=== PATIENT | female | born 1970 | race Caucasian/White ===

== ENCOUNTER → 2017-01-21 | Outpatient (CLI) | payer BC | LOC: COL.RAD 01-16 08:15 | DX: G35 Multiple sclerosis (principal) | CPT/HCPCS: A9585 ==

== ENCOUNTER → 2020-04-06 | Outpatient (CLI) | payer BC | LOC: COL.RAD 07:15 | DX: E53.8 Deficiency of other specified B group vitamins (principal); E55.9 Vitamin D deficiency, unspecified; E61.1 Iron deficiency | CPT/HCPCS: A9585 ==

== ENCOUNTER 2021-05-03 08:05 | Outpatient (RCR) | payer OTHER | END 2021-08-01 | disposition home or self-care (01) | LOC: WSOH | DX: T44.5X1A Poisoning by predominantly beta-adrenoreceptor agonists, accidental (unintentional), initial encounter (principal); F17.210 Nicotine dependence, cigarettes, uncomplicated; Z90.49 Acquired absence of other specified parts of digestive tract; Z98.51 Tubal ligation status; Z90.89 Acquired absence of other organs; Z98.890 Other specified postprocedural states; Y99.0 Civilian activity done for income or pay ==

== ENCOUNTER 2021-05-03 09:51 | Emergency (ER) | payer OTHER ==
[~2021-05-03] VITALS: Ht 167.6 cm; Wt 111.4 kg
[2021-05-03 10:00] VITALS: TEMP 98.5
[2021-05-03 10:50] VITALS: BP 126/82; PULSE 85
== END 2021-05-03 10:51 | disposition home or self-care (01) ==
LOC: COL.ER 09:51
DX: S69.91XA Unspecified injury of right wrist, hand and finger(s), initial encounter (principal); F17.210 Nicotine dependence, cigarettes, uncomplicated; W46.1XXA Contact with contaminated hypodermic needle, initial encounter

== ENCOUNTER → 2021-07-05 | Outpatient (CLI) | payer BC | LOC: COL.RAD 07:27 | DX: G35 Multiple sclerosis (principal); E55.9 Vitamin D deficiency, unspecified; E53.8 Deficiency of other specified B group vitamins; M54.17 Radiculopathy, lumbosacral region | CPT/HCPCS: A9585 ==

== ENCOUNTER → 2021-07-20 | Outpatient (CLI) | payer BC | LOC: COL.RAD 07-06 07:30 | DX: G35 Multiple sclerosis (principal); E55.9 Vitamin D deficiency, unspecified; E53.8 Deficiency of other specified B group vitamins; M54.17 Radiculopathy, lumbosacral region ==

== ENCOUNTER 2023-09-29 08:14 | Outpatient (RCR) | payer OTHER | END 2023-10-16 | disposition home or self-care (01) | LOC: WSOH | DX: S66.012D Strain of long flexor muscle, fascia and tendon of left thumb at wrist and hand level, subsequent encounter (principal); G35 Multiple sclerosis; K21.9 Gastro-esophageal reflux disease without esophagitis; Y99.0 Civilian activity done for income or pay ==